=== PATIENT | female | born 1950 | race Hispanic/Latino ===

== ENCOUNTER 2020-02-21 16:19 | Inpatient (IN) | payer MEDICARE ==
[~2020-02-21] VITALS: Ht 149.9 cm; Wt 62.7 kg
[2020-02-21 16:50] LABS: BASOPHILS % (AUTO) 0.6 % (0.0-5.0); HEMATOCRIT 30.8 % (36-48); LYMPHOCYTES % (AUTO) 15.2 % (21.0-51.0); MEAN CORPUSCULAR HEMOGLOBIN 28.9 pg (27.0-33.0); MEAN CORPUSCULAR HGB CONC 33.8 g/dL (32.0-36.0); MEAN CORPUSCULAR VOLUME 85.6 fL (79-99); MONOCYTES % (AUTO) 4.4 % (3.0-13.0); NEUTROPHILS % (AUTO) 79.5 % (40.0-77.0); PLATELET COUNT (AUTO) 145 K/uL (130-400); RED CELL DISTRIBUTION WIDTH 12.6 % (11.0-15.5); WHITE BLOOD COUNT (AUTO) 3.6 K/uL (4.8-10.8)
[2020-02-21 17:06] LABS: CREATININE 1.4 mg/dL (0.5-1.5); INR 0.97 (0.85-1.15); PARTIAL THROMBOPLASTIN TIME 24.9 SEC (26.3-35.5); PROTHROMBIN TIME 10.5 SEC (9.6-11.6)
[2020-02-21 17:10] LABS: ALBUMIN 3.2 g/dL (3.5-5.0); BILIRUBIN,TOTAL 0.7 mg/dL (0.2-1.0); TOTAL PROTEIN, SERUM 7.2 g/dL (6.0-8.3)
[2020-02-21] MEDS ORDERED: ASPIRIN 325 MG TABLET ONE (21:11)
[2020-02-21] MEDS ORDERED: IOHEXOL-350 75 ML VIAL IV ONE (21:20)
[2020-02-21] MEDS ORDERED: NITROGLYCERIN 0.4 MG SL TAB SL PRN (23:45)
[2020-02-21] MEDS ORDERED: ONDANSETRON HCL 4 MG/2 ML VIAL IV PRN (23:45)
[2020-02-21] MEDS ORDERED: MORPHINE SULFATE 2 MG/ML 1ML SYG IVP PRN (23:45)
[2020-02-21 23:50] LABS: APPEARANCE,URINE Clear (CLEAR); BILIRUBIN,URINE Negative (NEGATIVE); COLOR,URINE Yellow (YELLOW); GLUCOSE, URINE (UA) Negative (NEGATIVE); KETONES,URINE Negative (NEGATIVE); LEUKOCYTE ESTERASE ,URINE Negative (NEGATIVE); NITRATE,URINE Negative (NEGATIVE); OCCULT BLOOD,URINE Moderate (NEGATIVE); PH,URINE 5.5 (5.0-8.0); PROTEIN,URINE Trace mg/dL (NEGATIVE); UROBILINOGEN,URINE 0.2 mg/dL (0.2-1.0)
[2020-02-21 23:58] LABS: AMPHET/METH SCREEN,URINE NEGATIVE (NEGATIVE); BARBITURATE SCREEN, URINE NEGATIVE (NEGATIVE); BENZODIAZEPINES SCREEN,URINE NEGATIVE (NEGATIVE); CANNABINOID SCREEN,URINE NEGATIVE (NEGATIVE); COCAINE SCREEN,URINE NEGATIVE (NEGATIVE); OPIATE SCREEN,URINE NEGATIVE (NEGATIVE); PHENCYCLIDINE SCREEN,URINE NEGATIVE (NEGATIVE)
[2020-02-22 00:04] LABS: BACTERIA,URINE None Seen /HPF (None Seen); RBC,URINE 0-1 /HPF (0-1); WBC,URINE None Seen /HPF (0-1)
[2020-02-22 00:05] LABS: SQUAMOUS EPITHELIAL CELL,UR Rare /HPF (0-2)
[2020-02-22] MEDS ORDERED: ACETAMINOPHEN 650 MG SUPPOSITORY RC PRN (01:00)
[2020-02-22] MEDS ORDERED: ACETAMINOPHEN 650 MG SUPPOSITORY RC ONE (01:06)
[2020-02-22 02:25] VITALS: BP 145/56
[2020-02-22 04:00] VITALS: BP 137/52
[2020-02-22] MEDS ORDERED: LOSA50TA64 PO (04:47)
[2020-02-22] MEDS ORDERED: CLOP75TA32 PO (04:47)
[2020-02-22] MEDS ORDERED: LEVO100 PO (04:47)
[2020-02-22] MEDS ORDERED: ISOS30TA6 PO (04:47)
[2020-02-22] MEDS ORDERED: SERT50TA12 PO ×2 (04:47→18:08)
[2020-02-22] MEDS ORDERED: METF-910 PO (04:47)
[2020-02-22] MEDS ORDERED: AMLO-258 PO (04:47)
[2020-02-22] MEDS ORDERED: ROSU20TA31 PO (04:47)
[2020-02-22 06:40] LABS: HEMOGLOBIN A1C 5.9 % (4.0-6.0)
[2020-02-22 06:53] LABS: CHOLESTEROL 163 mg/dL (<200); CREATINE KINASE, TOTAL 69 U/L (21-232); HDL CHOLESTEROL 33 mg/dL (35-85); LACTATE DEHYDROGENASE 338 U/L (81-234); LDL DIRECT 94 mg/dL (0-99); MYOGLOBIN 65 ng/mL (10-92); TRIGLYCERIDES 169 mg/dL (30-200); TROPONIN I < 0.04 ng/mL (0.00-0.06)
[2020-02-22 08:00] VITALS: BP 124/73
[2020-02-22] MEDS: FAMOTIDINE/PF 20 MG/2 ML VIAL IV SCH (08:49)
[2020-02-22] MEDS: ASPIRIN 81MG TAB.CHEW PO SCH (08:52)
[2020-02-22 12:23] VITALS: BP 185/72
[2020-02-22] MEDS ORDERED: VANCOMYCIN PROTOCOL PER PHARMACY IV SCH (12:45)
[2020-02-22] MEDS ORDERED: PHARMACY COMMUNICATION MISC SCH ×2 (12:45→13:00)
[2020-02-22] MEDS ORDERED: ACETAMINOPHEN 325 MG TAB ONE ×2 (12:49→21:13)
--- NOTE | 2020-02-22 12:50 | NUR ---
DYSPHAGIA MARIANELA COMPLETED. S/S OF ASPIRATION AT THIS TIME. RECOMMEND REGULAR SOLIDS, THIN LIQUIDS, AND PILLS WHOLE WITH LIQUIDS TOLERATED. WEB WEAVER EDUCATED Pt ON RISKS AND CONSEQUENCES OF ASPIRATION. ALL QUESTIONS ANSWERED AT THIS TIME. WEB WEAVER COORDINATED WITH NURSE DAMON. Addendum: 02/22/[address] VAUGHN SALINAS Amended: Links added.
[2020-02-22] MEDS: ISOSORBIDE MONO 30MG TAB SR PO SCH (13:00)
[2020-02-22] MEDS ORDERED: VANCOMYCIN 1.25 GM in SODIUM CHLORIDE 0.9% 250 ML IV ONE (13:00)
[2020-02-22] MEDS: LOSARTAN 50 MG TABLET PO SCH (13:00)
[2020-02-22] MEDS ORDERED: COMPOUND IV REFRIGERATED 1 EACH IVSOLN MISC PRN (13:00)
[2020-02-22] MEDS: AMLODIPINE BESYLATE 5 MG TAB PO SCH (13:00)
--- NOTE | 2020-02-22 13:10 | NUR ---
PT. TO MRI VIA BED ACCOMPANIED BY LEANN SLADE.
[2020-02-22] MEDS: SODIUM CHLORIDE 0.9% 1000ML 1,000 ML IV SCH ×2 (13:43)
[2020-02-22] MEDS ORDERED: ACETAMINOPHEN 325 MG TAB PO ONE (13:50)
[2020-02-22] MEDS ORDERED: LEVOFLOXACIN 500 MG/D5W 100 ML 100 ML IV SCH (14:00)
[2020-02-22] MEDS ORDERED: ICOS1CAP PO (18:08)
[2020-02-22] MEDS ORDERED: ESLI400T PO (18:08)
[2020-02-22] MEDS ORDERED: HYDR5TAB14 PO (18:08)
[2020-02-22] MEDS ORDERED: HYDR-4419 PO (18:08)
[2020-02-22 18:42] VITALS: BP 119/32
[2020-02-22] MEDS: PHARMACY COMMUNICATION MISC SCH (18:45)
[2020-02-22 19:26] VITALS: BP 118/41
[2020-02-22] MEDS: ATORVASTATIN CALCIUM 40 MG TABLET PO SCH (20:09)
[2020-02-22] MEDS: CLOPIDOGREL BISULFATE 75 MG TAB PO SCH (20:09)
[2020-02-22] MEDS: DOXYCYCLINE HYCLATE 100 MG TABLET PO SCH (20:10)
[2020-02-22] MEDS ORDERED: HYDROCORTISONE 5 MG PO SCH (21:00)
[2020-02-22] MEDS ORDERED: NON-FORMULARY MEDICATION 1 EACH (Rosuvastatin Calcium 20 MG) PO SCH (21:00)
[2020-02-22] MEDS: HYDROCORTISONE 5MG TABLET PO SCH (21:00)
[2020-02-22] MEDS: VASCEPA 2 GM PO SCH (21:00)
[2020-02-22] MEDS ORDERED: ICOSAPENT ETHYL 2 GM PO SCH (21:00)
[2020-02-23] VITALS (7 sets, daily range): BP systolic 104–145; BP diastolic 37–58
[2020-02-23] MEDS: PHARMACY COMMUNICATION MISC SCH ×3 (02:45→16:34)
[2020-02-23] MEDS: FAMOTIDINE/PF 20 MG/2 ML VIAL IV SCH (08:28)
[2020-02-23] MEDS: SERTRALINE HCL 50 MG TABLET PO SCH (08:28)
[2020-02-23] MEDS: LEVOTHYROXINE 100 MCG TABLET PO SCH (08:29)
[2020-02-23] MEDS: ISOSORBIDE MONO 30MG TAB SR PO SCH (08:30)
[2020-02-23] MEDS: DOXYCYCLINE HYCLATE 100 MG TABLET PO SCH ×2 (08:30→22:02)
[2020-02-23] MEDS: ASPIRIN 81MG TAB.CHEW PO SCH (08:31)
[2020-02-23] MEDS: HYDROCORTISONE 20 MG TABLET PO SCH (08:31)
[2020-02-23] MEDS: METFORMIN HCL 500 MG TAB.SR.24H PO SCH (08:32)
[2020-02-23] MEDS: ESLICARBAZEPINE 400 MG PO SCH (08:32)
[2020-02-23] MEDS: VASCEPA 2 GM PO SCH ×2 (08:32→21:00)
[2020-02-23] MEDS: LOSARTAN 50 MG TABLET PO SCH (08:32)
[2020-02-23] MEDS: AMLODIPINE BESYLATE 5 MG TAB PO SCH (08:33)
[2020-02-23] MEDS: SODIUM CHLORIDE 0.9% 1000ML 1,000 ML IV SCH ×2 (08:38→16:00)
[2020-02-23] MEDS ORDERED: ISOSORBIDE MONO 30MG TAB SR PO SCH (09:00)
[2020-02-23] MEDS: VANCOMYCIN 750MG + NS 250 ML IV SCH ×2 (09:00)
[2020-02-23] MEDS ORDERED: NON-FORMULARY MEDICATION 1 EACH (Amlodipine Besylate 10 MG) PO SCH (09:00)
[2020-02-23] MEDS ORDERED: NON-FORMULARY MEDICATION 1 EACH (Hydrocortisone 10 MG) PO SCH (09:00)
[2020-02-23] MEDS ORDERED: LOSARTAN 50 MG TABLET PO SCH (09:00)
[2020-02-23] MEDS ORDERED: ESLICARBAZEPINE ACETATE 400 MG PO SCH (09:00)
--- NOTE | 2020-02-23 11:37 | NUR ---
cm note met with patient and states resides at home with spouse, independent with adls and ambulation, no dme. has provider 3 1/2hrs daily. daughter transports to md. states no dc needs. dc plan is back home. Addendum: 02/23/20 at 1140 by CHIP JONES CM Amended: Links added.
--- NOTE | 2020-02-23 11:50 | NUR ---
FOLLOW UP COMPLETED. PROTOTYPE CARPENTER COORDINATED WITH NURSE VAZQUEZ. Pt TOLERATING DIET RECOMMENDATIONS WITH NO S/S OF ASPIRATION AT THIS TIME. CONTINUE WITH PLAN OF CARE TOLERATED. Addendum: 02/23/[address] VAUGHN SALINAS Amended: Links added.
[2020-02-23] MEDS ORDERED: VANCOMYCIN 750MG + NS 250 ML IV SCH ×2 (12:00)
[2020-02-23] MEDS ORDERED: LEVOFLOXACIN 250 MG/D5W 50ML 50 ML IVPB SCH (14:00)
[2020-02-23] MEDS: ATORVASTATIN CALCIUM 40 MG TABLET PO SCH (21:00)
[2020-02-23] MEDS: HYDROCORTISONE 5MG TABLET PO SCH (21:00)
[2020-02-23] MEDS: CLOPIDOGREL BISULFATE 75 MG TAB PO SCH (22:02)
[2020-02-24] MEDS: PHARMACY COMMUNICATION MISC SCH ×3 (02:45→17:32)
[2020-02-24 03:00] VITALS: BP_SYST 110; BP_SYST 123; BP_DIAS 45; BP_DIAS 69
[2020-02-24 05:02] LABS: BASOPHILS % (AUTO) 0.3 % (0.0-5.0); EOSINOPHILS % (AUTO) 5.9 % (0.0-8.0); HEMATOCRIT 24.2 % (36-48); LYMPHOCYTES % (AUTO) 26.3 % (21.0-51.0); MEAN CORPUSCULAR HEMOGLOBIN 29.4 pg (27.0-33.0); MEAN CORPUSCULAR HGB CONC 33.9 g/dL (32.0-36.0); MEAN CORPUSCULAR VOLUME 86.7 fL (79-99); MONOCYTES % (AUTO) 5.6 % (3.0-13.0); NEUTROPHILS % (AUTO) 61.9 % (40.0-77.0); PLATELET COUNT (AUTO) 121 K/uL (130-400); RED BLOOD CELL COUNT(AUTO) 2.79 MIL/uL (4.00-5.50); RED CELL DISTRIBUTION WIDTH 12.8 % (11.0-15.5); WHITE BLOOD COUNT (AUTO) 3.6 K/uL (4.8-10.8)
[2020-02-24 05:19] LABS: ALBUMIN 2.4 g/dL (3.5-5.0); BILIRUBIN,TOTAL 0.4 mg/dL (0.2-1.0); CREATININE 0.8 mg/dL (0.5-1.5); POTASSIUM 3.5 mmol/L (3.5-5.1); TOTAL PROTEIN, SERUM 5.6 g/dL (6.0-8.3)
[2020-02-24] MEDS: SODIUM CHLORIDE 0.9% 1000ML 1,000 ML IV SCH ×2 (05:20→17:31)
[2020-02-24] MEDS: LEVOTHYROXINE 100 MCG TABLET PO SCH (06:34)
[2020-02-24 08:00] VITALS: BP 107/48
[2020-02-24] MEDS: ESLICARBAZEPINE 400 MG PO SCH (09:00)
[2020-02-24] MEDS: VASCEPA 2 GM PO SCH ×2 (09:00→21:00)
[2020-02-24] MEDS: VANCOMYCIN 750MG + NS 250 ML IV SCH ×2 (09:00)
[2020-02-24] MEDS ORDERED: VANCOMYCIN 1GM+NS 250ML 250 ML IV SCH (09:44)
[2020-02-24] MEDS: FAMOTIDINE/PF 20 MG/2 ML VIAL IV SCH (09:56)
[2020-02-24] MEDS: METFORMIN HCL 500 MG TAB.SR.24H PO SCH (09:56)
[2020-02-24] MEDS: DOXYCYCLINE HYCLATE 100 MG TABLET PO SCH ×2 (09:57→21:31)
[2020-02-24] MEDS: ASPIRIN 81MG TAB.CHEW PO SCH (09:57)
[2020-02-24] MEDS: SERTRALINE HCL 50 MG TABLET PO SCH (09:58)
[2020-02-24] MEDS: ISOSORBIDE MONO 30MG TAB SR PO SCH (09:58)
[2020-02-24] MEDS: HYDROCORTISONE 20 MG TABLET PO SCH (09:58)
[2020-02-24 12:00] VITALS: BP 136/63
[2020-02-24] MEDS: AMLODIPINE BESYLATE 5 MG TAB PO SCH (12:17)
[2020-02-24] MEDS: LOSARTAN 50 MG TABLET PO SCH (12:17)
[2020-02-24] MEDS: LACTOBACILLUS RHAMNOSUS GG 1 EACH CAP.SPRINK PO SCH ×2 (12:17→17:16)
[2020-02-24 16:00] VITALS: BP 107/45
[2020-02-24 19:00] VITALS: BP 128/53
[2020-02-24] MEDS: HYDROCORTISONE 5MG TABLET PO SCH (21:00)
[2020-02-24] MEDS: CLOPIDOGREL BISULFATE 75 MG TAB PO SCH (21:31)
[2020-02-24] MEDS: ATORVASTATIN CALCIUM 40 MG TABLET PO SCH (21:31)
[2020-02-25] VITALS: BP 145/54
[2020-02-25] MEDS: PHARMACY COMMUNICATION MISC SCH ×2 (02:45→10:18)
[2020-02-25 04:00] VITALS: BP 148/58
[2020-02-25 04:33] LABS: BASOPHILS % (AUTO) 0.2 % (0.0-5.0); EOSINOPHILS % (AUTO) 3.5 % (0.0-8.0); HEMATOCRIT 24.1 % (36-48); LYMPHOCYTES % (AUTO) 26.9 % (21.0-51.0); MEAN CORPUSCULAR HEMOGLOBIN 29.4 pg (27.0-33.0); MEAN CORPUSCULAR HGB CONC 34.4 g/dL (32.0-36.0); MEAN CORPUSCULAR VOLUME 85.5 fL (79-99); MONOCYTES % (AUTO) 5.4 % (3.0-13.0); NEUTROPHILS % (AUTO) 63.8 % (40.0-77.0); PLATELET COUNT (AUTO) 167 K/uL (130-400); RED BLOOD CELL COUNT(AUTO) 2.82 MIL/uL (4.00-5.50); RED CELL DISTRIBUTION WIDTH 12.8 % (11.0-15.5); WHITE BLOOD COUNT (AUTO) 4.8 K/uL (4.8-10.8)
[2020-02-25 04:48] LABS: ALBUMIN 2.5 g/dL (3.5-5.0); BILIRUBIN,TOTAL 0.4 mg/dL (0.2-1.0); CREATININE 0.7 mg/dL (0.5-1.5); POTASSIUM 3.2 mmol/L (3.5-5.1); TOTAL PROTEIN, SERUM 5.9 g/dL (6.0-8.3)
[2020-02-25] MEDS: LEVOTHYROXINE 100 MCG TABLET PO SCH (06:14)
[2020-02-25] MEDS: ACETAMINOPHEN 325 MG TAB PO PRN (07:34)
[2020-02-25] MEDS: SODIUM CHLORIDE 0.9% 1000ML 1,000 ML IV SCH ×2 (07:35→20:26)
[2020-02-25 08:00] VITALS: BP 141/48
[2020-02-25] MEDS: FAMOTIDINE/PF 20 MG/2 ML VIAL IV SCH (08:24)
[2020-02-25] MEDS: AMLODIPINE BESYLATE 5 MG TAB PO SCH (08:25)
[2020-02-25] MEDS: ASPIRIN 81MG TAB.CHEW PO SCH (08:25)
[2020-02-25] MEDS: DOXYCYCLINE HYCLATE 100 MG TABLET PO SCH ×2 (08:25→20:26)
[2020-02-25] MEDS: HYDROCORTISONE 20 MG TABLET PO SCH (08:25)
[2020-02-25] MEDS: METFORMIN HCL 500 MG TAB.SR.24H PO SCH (08:25)
[2020-02-25] MEDS: SERTRALINE HCL 50 MG TABLET PO SCH (08:26)
[2020-02-25] MEDS: LACTOBACILLUS RHAMNOSUS GG 1 EACH CAP.SPRINK PO SCH ×3 (08:26→16:58)
[2020-02-25] MEDS: LOSARTAN 50 MG TABLET PO SCH (08:28)
[2020-02-25] MEDS: ESLICARBAZEPINE 400 MG PO SCH (08:29)
[2020-02-25] MEDS: ISOSORBIDE MONO 30MG TAB SR PO SCH (08:29)
[2020-02-25] MEDS: VASCEPA 2 GM PO SCH ×2 (08:29→20:30)
[2020-02-25] MEDS ORDERED: LIDOCAINE HCL-MPF 1% 2ML VIAL IJ PRN (10:00)
[2020-02-25] MEDS ORDERED: POTASSIUM CHLORIDE 10% ELIXIR 20 MEQ/15 ML UDCUP PO PRN (10:00)
[2020-02-25] MEDS ORDERED: POTASSIUM CHLORIDE 20MEQ/100ML 100 ML IV PRN (10:00)
[2020-02-25] MEDS: POTASSIUM CHLORIDE 20 MEQ ERTAB PO PRN ×3 (10:28→17:08)
[2020-02-25] MEDS ORDERED: VANCOMYCIN PROTOCOL PER PHARMACY IV SCH (10:45)
[2020-02-25 11:24] VITALS: BP 125/46
[2020-02-25] MEDS: MEROPENEM 1 GM VIAL IVP SCH ×2 (11:24→17:08)
[2020-02-25 16:00] VITALS: BP 122/46
[2020-02-25 20:25] VITALS: BP 140/59
[2020-02-25] MEDS: ATORVASTATIN CALCIUM 40 MG TABLET PO SCH (20:26)
[2020-02-25] MEDS: CLOPIDOGREL BISULFATE 75 MG TAB PO SCH (20:26)
[2020-02-25] MEDS: HYDROCORTISONE 5MG TABLET PO SCH (20:30)
[2020-02-26] VITALS (7 sets, daily range): BP systolic 125–151; BP diastolic 42–57
[2020-02-26] MEDS: MEROPENEM 1 GM VIAL IVP SCH ×3 (02:57→18:41)
[2020-02-26] MEDS: ACETAMINOPHEN 325 MG TAB PO PRN (04:05)
[2020-02-26 04:28] LABS: BASOPHILS % (AUTO) 0.2 % (0.0-5.0); EOSINOPHILS % (AUTO) 3.9 % (0.0-8.0); HEMATOCRIT 23.2 % (36-48); LYMPHOCYTES % (AUTO) 27.8 % (21.0-51.0); MEAN CORPUSCULAR HEMOGLOBIN 29.6 pg (27.0-33.0); MEAN CORPUSCULAR HGB CONC 34.5 g/dL (32.0-36.0); MEAN CORPUSCULAR VOLUME 85.9 fL (79-99); MONOCYTES % (AUTO) 6.3 % (3.0-13.0); NEUTROPHILS % (AUTO) 61.1 % (40.0-77.0); PLATELET COUNT (AUTO) 211 K/uL (130-400); WHITE BLOOD COUNT (AUTO) 5.7 K/uL (4.8-10.8)
[2020-02-26 04:50] LABS: ALBUMIN 2.4 g/dL (3.5-5.0); BILIRUBIN,TOTAL 0.4 mg/dL (0.2-1.0); CREATININE 0.6 mg/dL (0.5-1.5); POTASSIUM 3.7 mmol/L (3.5-5.1); TOTAL PROTEIN, SERUM 5.8 g/dL (6.0-8.3)
[2020-02-26] MEDS: POTASSIUM CHLORIDE 20 MEQ ERTAB PO PRN ×2 (05:33→20:07)
[2020-02-26] MEDS: LEVOTHYROXINE 100 MCG TABLET PO SCH (05:33)
[2020-02-26] MEDS: LOSARTAN 50 MG TABLET PO SCH (08:52)
[2020-02-26] MEDS: SERTRALINE HCL 50 MG TABLET PO SCH (08:52)
[2020-02-26] MEDS: FAMOTIDINE/PF 20 MG/2 ML VIAL IV SCH (08:52)
[2020-02-26] MEDS: METFORMIN HCL 500 MG TAB.SR.24H PO SCH (08:52)
[2020-02-26] MEDS: LACTOBACILLUS RHAMNOSUS GG 1 EACH CAP.SPRINK PO SCH ×3 (08:52→18:41)
[2020-02-26] MEDS: DOXYCYCLINE HYCLATE 100 MG TABLET PO SCH ×2 (08:53→20:06)
[2020-02-26] MEDS: ISOSORBIDE MONO 30MG TAB SR PO SCH (08:53)
[2020-02-26] MEDS: ASPIRIN 81MG TAB.CHEW PO SCH (08:53)
[2020-02-26] MEDS: AMLODIPINE BESYLATE 5 MG TAB PO SCH (08:53)
[2020-02-26] MEDS: VASCEPA 2 GM PO SCH ×2 (08:54→20:09)
[2020-02-26] MEDS: ESLICARBAZEPINE 400 MG PO SCH (08:54)
[2020-02-26] MEDS ORDERED: VANCOMYCIN 1GM+NS 250ML 250 ML IV SCH (09:00)
[2020-02-26] MEDS: SODIUM CHLORIDE 0.9% 1000ML 1,000 ML IV SCH (11:40)
[2020-02-26] MEDS: HYDROCORTISONE 20 MG TABLET PO SCH (11:53)
[2020-02-26 18:08] LABS: ROCKY MT SPOTTED FEVER IGG <1:64 (Neg:<1:64); TYPHUS FEVER AB IGG <1:64 (Neg:<1:64)
[2020-02-26] MEDS: ATORVASTATIN CALCIUM 40 MG TABLET PO SCH (20:05)
[2020-02-26] MEDS: CLOPIDOGREL BISULFATE 75 MG TAB PO SCH (20:06)
[2020-02-26] MEDS: HYDROCORTISONE 5MG TABLET PO SCH (20:10)
--- NOTE | 2020-02-26 20:30 | NUR ---
JESSY NAVARRETE MD MADE ROUNDS ON PT AT BEDSIDE. MADE AWARE THAT PT STARTED TO HAVE WATERY STOOLS TODAY. JESSY ORDERED A CDIFF PCR AND TO BEGIN IV FLAGYL. ORDERS PLACED IN [facility], WILL BEGIN TO INITIATE ORDERS. PT HAS NO FURTHER QUESTIONS AT THIS TIME.
[2020-02-26] MEDS ORDERED: METRONIDAZOLE 500MG/100ML BAG 100 ML IV SCH (21:00)
[2020-02-27] MEDS: MEROPENEM 1 GM VIAL IVP SCH (02:32)
[2020-02-27] MEDS: SODIUM CHLORIDE 0.9% 1000ML 1,000 ML IV SCH ×2 (02:32)
[2020-02-27 03:15] VITALS: BP 133/54
[2020-02-27 03:48] LABS: BASOPHILS % (AUTO) 0.4 % (0.0-5.0); EOSINOPHILS % (AUTO) 4.4 % (0.0-8.0); HEMATOCRIT 23.7 % (36-48); LYMPHOCYTES % (AUTO) 38.6 % (21.0-51.0); MEAN CORPUSCULAR HEMOGLOBIN 28.7 pg (27.0-33.0); MEAN CORPUSCULAR HGB CONC 33.8 g/dL (32.0-36.0); MEAN CORPUSCULAR VOLUME 84.9 fL (79-99); MONOCYTES % (AUTO) 7.2 % (3.0-13.0); NEUTROPHILS % (AUTO) 48.3 % (40.0-77.0); PLATELET COUNT (AUTO) 268 K/uL (130-400); RED BLOOD CELL COUNT(AUTO) 2.79 MIL/uL (4.00-5.50); RED CELL DISTRIBUTION WIDTH 12.9 % (11.0-15.5); WHITE BLOOD COUNT (AUTO) 4.7 K/uL (4.8-10.8)
[2020-02-27 04:12] LABS: CREATININE 0.7 mg/dL (0.5-1.5); MAGNESIUM 2.1 mg/dL (1.80-2.40); PHOSPHORUS 1.5 mg/dL (2.5-4.9); POTASSIUM 4.3 mmol/L (3.5-5.1)
[2020-02-27] MEDS: LEVOTHYROXINE 100 MCG TABLET PO SCH (04:54)
--- NOTE | 2020-02-27 05:26 | NUR ---
LOW BLOOD SUGAR FINGER STICK CHECK OF 63. PROVIDED ORANGE JUICE WITH SUGAR TO DRINK. WILL RECHECK BS. CALL LIGHT WITHIN REACH .
[2020-02-27 07:37] VITALS: BP 146/54
[2020-02-27] MEDS ORDERED: DOXY100T2 PO (09:29)
[2020-02-27] MEDS: LACTOBACILLUS RHAMNOSUS GG 1 EACH CAP.SPRINK PO SCH (09:36)
[2020-02-27] MEDS: ASPIRIN 81MG TAB.CHEW PO SCH (09:36)
[2020-02-27] MEDS: ISOSORBIDE MONO 30MG TAB SR PO SCH (09:36)
[2020-02-27] MEDS: DOXYCYCLINE HYCLATE 100 MG TABLET PO SCH (09:36)
[2020-02-27] MEDS: LOSARTAN 50 MG TABLET PO SCH (09:37)
[2020-02-27] MEDS: AMLODIPINE BESYLATE 5 MG TAB PO SCH (09:37)
[2020-02-27] MEDS: SERTRALINE HCL 50 MG TABLET PO SCH (09:37)
[2020-02-27] MEDS: FAMOTIDINE/PF 20 MG/2 ML VIAL IV SCH (09:37)
[2020-02-27] MEDS: HYDROCORTISONE 20 MG TABLET PO SCH (09:44)
[2020-02-27 10:40] VITALS: BP 139/49
[2020-02-27] MEDS ORDERED: POTASSIUM PHOS 15 mMOL+NS250ML 250 ML IV PRN (10:45)
== END 2020-02-27 18:24 | disposition home or self-care (01) | DRG 871 ==
LOC: EDH 16:19 → EDHIP 23:36 → 2DH 02-22 02:49 → 4BH 02-22 23:10
PROVIDERS: ADMIT Internal Medicine; ATTEND Internal Medicine
DX: A41.9 Sepsis, unspecified organism (principal); I63.81 Other cerebral infarction due to occlusion or stenosis of small artery; E23.0 Hypopituitarism; A79.9 Rickettsiosis, unspecified; M19.90 Unspecified osteoarthritis, unspecified site; Z20.828 Contact with and (suspected) exposure to other viral communicable diseases; R29.701 NIHSS score 1; I10 Essential (primary) hypertension; E78.00 Pure hypercholesterolemia, unspecified; E03.9 Hypothyroidism, unspecified; M81.0 Age-related osteoporosis without current pathological fracture; G40.909 Epilepsy, unspecified, not intractable, without status epilepticus; E78.5 Hyperlipidemia, unspecified; E87.8 Other disorders of electrolyte and fluid balance, not elsewhere classified; E11.9 Type 2 diabetes mellitus without complications; R53.81 Other malaise; E66.9 Obesity, unspecified; Z68.27 Body mass index [BMI] 27.0-27.9, adult; Z88.0 Allergy status to penicillin; Z78.9 Other specified health status
CPT/HCPCS: 36415; 70450; 70496; 70498; 70551; 71045; 76705; 80048; 80053; 80061; 80202; 80305; 81001; 82550; 82728; 82948; 83036; 83615; 83721; 83735; 83874; 84100; 84145; 84484; 85025; 85378; 85610; 85651; 85730; 86140; 86757; 87040; 87486; 87581; 87633; 87798; 87804; 92610; 93005; 93306; 93356; 97039; G0378; J1956; J2185; J3370; J3490; J7030; J7050; Q9967